=== PATIENT | male | born 1975 | race American Indian/Alaskan Native ===

== ENCOUNTER → 2016-08-17 | Day surgery (SDC) | payer MEDICAID, OTHER ==
[~2016-08-17] MED LIST: ATEN-100 PO; FEED1MIS9; FENO50TA PO; GLUC1.5L TUBE; GLUCTAB PO; LACTATED RINGER'S 1000 ML INJ 1,000 ML ONE; OXYC5 PO; PROPOFOL 100 MG/10 ML INJ IV ONE; ZOCO40TA PO; [UNRECOGNIZED DRUG - CODE] TUBE; [UNRECOGNIZED DRUG - SUPPLY]
== END | disposition home or self-care (01) ==
LOC: ESDC 10:17
PROVIDERS: ATTEND Internal Medicine Gastroenterology
DX: R14.0 Abdominal distension (gaseous) (principal); K29.70 Gastritis, unspecified, without bleeding
CPT/HCPCS: 00740; 43239; 88305; 88312; J3010; J7120